=== PATIENT | female | born 2000 | race Caucasian/White ===

== ENCOUNTER 2019-11-24 00:42 | Emergency (ER) | payer OTHER ==
[~2019-11-24] VITALS: Ht 157.5 cm; Wt 81.7 kg
[2019-11-24] MEDS ORDERED: FLEXERIL PO (00:56)
[2019-11-24] MEDS ORDERED: HYDROCODON-ACE1 EAC8 PO (01:24)
[2019-11-24] MEDS ORDERED: PENICILLIN VK250 MG PO (01:24)
[2019-11-24 01:37] VITALS: BP 130/86
== END 2019-11-24 01:50 | disposition home or self-care (01) ==
LOC: M.ERS 00:42
DX: K08.89 Other specified disorders of teeth and supporting structures (principal)